=== PATIENT | male | born 2000 | race Caucasian/White ===

== ENCOUNTER → 2022-01-01 | Outpatient (CLI) | payer OTHER | LOC: RAD 18:01 → LAB 18:01 | DX: J20.9 Acute bronchitis, unspecified (principal); J98.01 Acute bronchospasm; R53.83 Other fatigue; R50.81 Fever presenting with conditions classified elsewhere; Z20.828 Contact with and (suspected) exposure to other viral communicable diseases | CPT/HCPCS: 71046 ==